=== PATIENT | male | born 1970 | race Caucasian/White ===

== ENCOUNTER 2016-06-17 20:24 | Emergency (ER) | payer BC ==
[~2016-06-17] VITALS: Ht 180.3 cm; Wt 97.5 kg
[2016-06-17 21:30] VITALS: BP 138/87
[2016-06-17 21:32] LABS: POTASSIUM ISTAT 3.4 mmol/L (3.5-5.0)
--- NOTE | 2016-06-17 21:46 | PHYS DOC ---
Past Medical History Past Medical History: Hepatitis, Other Additional Past Medical Histor: Hep C Past Surgical History: No Surgical History Additional Information: PAD smoker Alcohol Use: None Drug Use: Methamphetamine Adult General Chief Complaint Chief Complaint: CHEST PAIN HPI HPI 46-year-old male presenting to the emergency department today with left-sided chest pain that started yesterday. Currently he denies any chest pain. He also did meth at the time when he had chest pain. He described his pain is sharp nonradiating mild intermittent and without alleviating factors. Review of systems is negative for shortness of breath abdominal pain nausea vomiting diaphoresis. All other review of systems is negative unless otherwise noted in history of present illness. Review of Systems Review of Systems SEE ABOVE. Allergies Allergies Allergies Coded Allergies Type Severity Reaction Last Updated Verified No Known Drug Allergies 06/17/16 No Physical Exam Physical Exam Constitutional: Well developed, well nourished, no acute distress, non-toxic appearance. HENT: Normocephalic, atraumatic, bilateral external ears normal, oropharynx moist, no oral exudates, nose normal. [] Eyes: PERRLA, EOMI, conjunctiva normal, no discharge. Neck: Normal range of motion, no tenderness, supple, no stridor. [] Cardiovascular:Heart rate regular rhythm, no murmur Lungs & Thorax: Bilateral breath sounds clear to auscultation Abdomen: Bowel sounds normal, soft, no tenderness, no masses, no pulsatile masses. Skin: Warm, dry, no erythema, no rash. [] Back: No tenderness, no CVA tenderness. Extremities: No tenderness, no cyanosis, no clubbing, ROM intact, no edema. [] Neurologic: Alert and oriented X 3, normal motor function, normal sensory function, no focal deficits noted. Psychologic: Affect normal, judgement normal, mood normal. Current Patient Data Vital Signs Vital Signs Date Time Temp Pulse Resp B/P Pulse Ox O2 Delivery O2 Flow Rate FiO2 06/17/16 20:30 98.7 80 16 155/97 98 Room Air 98.7 Lab Values Laboratory Tests Test 06/17/16 21:21 06/17/16 21:29 POC Troponin I 0.00ng/ml (<0.08) POC Hemoglobin 14.6g/dL (14-18) POC Hematocrit 43% (37-52) POC Sodium 139mmol/L (135-145) POC Potassium 3.4mmol/L (3.5-5.0) L POC Chloride 101mmol/L (98-110) POC Total CO2 24mmol/L (23-32) Anion Gap 18mmol/L (6-14) H POC Blood Urea Nitrogen 29mg/dL (8-26) H POC Creatinine 1.1mg/dL (0.5-1.4) Glucose Level 103mg/dL (70-99) H POC Ionized Calcium ([place]) 1.07mmol/L (1.13-1.32) L Laboratory Tests 06/17/16 21:29 EKG EKG [] Radiology/Procedures Radiology/Procedures [] Course & Med Decision Making Course & Med Decision Making Pertinent Labs and Imaging studies reviewed. (See chart for details) [] 46-year-old gentleman presenting with chest pain that occurred approximately 24 hours ago. Currently chest pain-free. Vital signs showed mild hypertension. EKG unremarkable. I-STAT troponin chemistry panel unremarkable including a negative troponin. Pain and been present greater than 6 hours prior to testing. Patient was asymptomatic on reevaluation. Patient subsequent discharged home to follow up with PCP over the next 2-3 days. Dragon Disclaimer Dragon Disclaimer This electronic medical record was generated, in whole or in part, using a voice recognition dictation system. Departure Departure Impression: Primary Impression: Chest pain Disposition: 01 HOME, SELF-CARE Condition: STABLE Referrals: NO PCP (PCP) HEATHER QUIÑONES MD Patient Instructions: Chest Pain (Nonspecific) Additional Instructions: Thank you for allowing us to participate in your care today. Followup with your primary care physician in 3 days if your symptoms do not improve. If you do not have a primary care provider you can ask for a list of our primary care providers. Return to the emergency department you have any new or concerning findings. This should be evaluated by the primary care physician and any necessary consulting services for continued management within a few days after discharge. Return to emergency room if you have any new or concerning symptoms including but not limited to fever, chills, nausea, vomiting, intractable pain, any new rashes, chest pain, shortness of air, uncontrolled bleeding, difficulty breathing, and/or vision loss. MADELYN LANDAVERDE MD Jun 17, 2016 21:45
--- NOTE | 2016-06-18 08:21 | RAD ---
Portable chest, 06/17/2016: History: Chest pain The heart size and pulmonary vascularity are normal. No pulmonary infiltrates are seen. There is no evidence of pleural fluid. IMPRESSION: No acute cardiopulmonary abnormality is detected.
--- NOTE | 2016-06-18 09:45 | EKG ---
[facility] [address] [place] [address] Test Date: 2016-06-17 Test Time: 20:24:42 Pat Name: CORAL WAGNER Department: Room: Gender: M Configuration Management Specialist: : [id number] Requested By: MADELYN LANDAVERDE Order Number: [id number] Reading MD: Measurements Intervals [place] Rate: 79 P: 69 AR: 164 QRS: 4 QRSD: 82 T: 33 QT: 368 QTc: 428 Interpretive Statements SINUS RHYTHM NORMAL ECG RI6.01 No previous ECG available for comparison
== END 2016-06-17 21:50 | disposition home or self-care (01) ==
LOC: ER 20:24
DX: R07.89 Other chest pain (principal); F17.200 Nicotine dependence, unspecified, uncomplicated; F15.10 Other stimulant abuse, uncomplicated; Z86.19 Personal history of other infectious and parasitic diseases
CPT/HCPCS: 71010; 80047; 84484; 93005; 99284-25